=== PATIENT | female | born 1975 | race Caucasian/White ===

== ENCOUNTER 2018-10-17 15:34 | Emergency (ER) | payer SELFPAY ==
[~2018-10-17] VITALS: Ht 165.1 cm; Wt 84.5 kg
[2018-10-17 15:59] VITALS: BP 138/79
== END 2018-10-17 17:56 | disposition home or self-care (01) ==
LOC: ED 15:34
DX: H01.003 Unspecified blepharitis right eye, unspecified eyelid (principal); R14.0 Abdominal distension (gaseous); R10.9 Unspecified abdominal pain; K80.80 Other cholelithiasis without obstruction